=== PATIENT | female | born 1945 | race Caucasian/White ===

== ENCOUNTER 2020-05-01 12:52 | Emergency (ER) | payer BC, MEDICARE ==
[2020-05-01 13:24] VITALS: BP 151/73; PULSE 78
--- NOTE | 2020-05-01 13:49 | EDM.PDOC ---
ED HPI GENERAL MEDICAL PROBLEM - General Chief Complaint: Upper Extremity Injury/Pain Stated Complaint: BROKEN ARM Time Seen by Provider: 05/01/20 13:35 Source of Information: Reports: Patient, Family History Limitations: Reports: No Limitations - History of Present Illness INITIAL COMMENTS - FREE TEXT/NARRATIVE: 74-year-old female stumbled forward landing on her right arm. She has intense pain in the right humerus area, no other injury. She can move her elbow but it causes pain above the elbow to near the shoulder, she can feel her hand and move her fingers. Onset: Sudden Duration: Hour(s): (Within the past hour) Location: Reports: Upper Extremity, Right Associated Symptoms: Reports: No Other Symptoms. 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: - Infectious Disease History Infectious Disease History: Reports: Chicken Pox, Measles, Mumps Social & Family History - Tobacco Use Smoking Status *Q: Never Smoker - Caffeine Use Caffeine Use: Reports: Soda - Recreational Drug Use Recreational Drug Use: No Review of Systems - Review of Systems Review Of Systems: See Below Constitutional: Denies: Fever Respiratory: Denies: Shortness of Breath Cardiovascular: Denies: Chest Pain Skin: Denies: Bruising Neurological: Denies: Headache Psychiatric: Reports: No Symptoms ED EXAM, GENERAL - Physical Exam Exam: See Below Exam Limited By: No Limitations General Appearance: Alert, Mild Distress Head: Atraumatic Neck: Non-Tender Respiratory/Chest: Lungs Clear Extremities: Other (Erythema developing with some apparent mild deformity mid humeral area.) Neurological: Alert, Oriented Skin Exam: Warm, Dry Course - Vital Signs Last Recorded V/S: Last Vital Signs Temp 97.0 F 05/01/20 13:32 Pulse 78 05/01/20 13:32 Resp 16 05/01/20 13:32 BP 151/73 H 05/01/20 13:32 Pulse Ox 98 05/01/20 13:32 - Orders/Labs/Meds Meds: Medications Discontinued Medications Generic Name Dose Route Start Last Admin Trade Name Luis Enrique PRN Reason Stop Dose Admin Hydromorphone HCl 1 mg 05/01/20 13:56 05/01/20 14:05 Dilaudid IM 05/01/20 13:57 1 mg ONETIME ONE Administration - Re-Assessments/Exams Free Text/Narrative Re-Assessment/Exam: 05/01/20 14:02 X-ray of the right humerus was obtained and shows a displaced distal humeral shaft fracture. X-ray to be reviewed by Dr. Velasquez. 05/01/20 15:20 A 5 inch Ortho-Glass stirrup splint was placed on the upper arm with the elbow at a 90 degree angle, and the arm placed in a sling. She was given 20 hydrocodone for extra pain control and will recheck with Dr. Velasquez on . Departure - Departure Time of Disposition: 15:51 Disposition: Home, Self-Care 01 Clinical Impression: Right humeral fracture Qualifiers: Encounter type: initial encounter Humerus Location: shaft Fracture type: closed Fracture morphology: spiral Fracture alignment: displaced Qualified Code(s): S42.341A - Displaced spiral fracture of shaft of humerus, right arm, initial encounter for closed fracture - Discharge Information Instructions: Humerus Fracture Treated With Immobilization, [id number] Referrals: PCP,None [Primary Care Provider] - Forms: ED Department Discharge Care Plan Goals: Keep splint on and sling until recheck on . A regular dose of ibuprofen or naproxen will be helpful and add stronger pain medication if needed. Sepsis Event Note (ED) - Evaluation Sepsis Screening Result: No Definite Risk - Focused Exam Vital Signs: Vital Signs Temp Pulse Resp BP Pulse Ox 05/01/20 13:32 97.0 F 78 16 151/73 H 98 05/01/20 13:22 97.0 F 78 16 151/73 H 98
[2020-05-01] MEDS ORDERED: HYDROmorphone 1 MG/ML Syringe IM ONE (13:56)
--- NOTE | 2020-05-01 15:18 | CR ---
Humerus Rt CLINICAL HISTORY: Fall, pain FINDINGS: There is a displaced angulated fracture of the distal third of the humeral shaft.. IMPRESSION: Displaced distal humeral fracture
== END 2020-05-01 15:35 | disposition home or self-care (01) ==
LOC: JP.ED 12:52
DX: S42.341A Displaced spiral fracture of shaft of humerus, right arm, initial encounter for closed fracture (principal); J45.909 Unspecified asthma, uncomplicated; Z88.8 Allergy status to other drugs, medicaments and biological substances; Z88.0 Allergy status to penicillin; W01.0XXA Fall on same level from slipping, tripping and stumbling without subsequent striking against object, initial encounter
CPT/HCPCS: 29105; 73060; 96372; 99283; J1170

== ENCOUNTER 2020-08-29 07:28 | Day surgery (SDC) | payer MEDICARE ==
[~2020-08-29 07:28] MED LIST: Dexamethasone 4 MG/ML SDV ONE; Glycopyrrolate 0.2 MG/ML 5 ML MDV ONE; Neostigmine Methylsulfate 1 MG/ML 5 ML Syringe ONE; Ondansetron 4 MG/2 ML SDV ONE; Propofol 200 MG/20 ML SDV ONE; Rocuronium 50 MG/5 ML Vial ONE; Succinylcholine 200 MG/10 ML MDV ONE; fentaNYL 250 MCG/5 ML SDV ONE
[2020-08-29] MEDS ORDERED: Lactated Ringers 1,000 ML IV SCH (08:45)
[2020-08-29] MEDS ORDERED: Albuterol/Ipratropium 3.0-0.5 MG/3 ML Neb Soln NEB ONE (08:45)
[2020-08-29] MEDS ORDERED: Nozin Nasal Sanitizer NASBOTH ONE (08:45)
[2020-08-29] MEDS ORDERED: ceFAZolin 2 GM in Premix Bag 1 BAG IV ONE (09:00)
[2020-08-29] MEDS ORDERED: Lidocaine 4% Top Soln LTA 4 ML Syringe Kit ONE (09:19)
[2020-08-29] MEDS ORDERED: ePHEDrine 50 MG/ML SDV ONE (10:04)
[2020-08-29] MEDS ORDERED: Lactated Ringers 1,000 ML ONE (11:42)
[2020-08-29] MEDS ORDERED: Morphine 2 MG/ML SYRINGE IVPUSH ONE (12:04)
[2020-08-29] MEDS ORDERED: Acetaminophen/HYDROcodone 325-5 MG Tab PO ONE (12:52)
[2020-08-29 13:33] VITALS: BP 110/60; PULSE 83
--- NOTE | 2020-08-29 21:05 | CRLCR ---
Indication: Postop ORIF. Technique: Right humerus, 2 portable views. Comparison: Right humerus 08/14/2020. Findings: Lateral plate and screw fixation of obliquely oriented distal humeral diaphysis fracture shows no evidence of complication. Mild ventral apex angulation of fracture fragments and posterior lateral displacement of the distal fracture fragment persists but has markedly improved. [id number] degenerative changes of the elbow. No additional osseous abnormality. Lateral soft tissue swelling and gas consistent with recent surgery. Impression: ORIF of distal humerus fracture, without evidence of complication. Dictated by Adams Walker MD @ 08/29/2020 9:04:19 PM Dictated by: Adams Walker MD @ 08/29/2020 21:04:24 (Electronically Signed)
--- NOTE | 2020-09-03 20:36 | OR ---
DATE OF PROCEDURE: 08/29/2020 SURGEON: Jeffery Velasquez MD PREOPERATIVE DIAGNOSIS: Nonunion, right distal humerus. POSTOPERATIVE DIAGNOSIS: Nonunion, right distal humerus. PROCEDURES: 1. Takedown of nonunion. 2. Open reduction and internal fixation right humeral shaft. PROPRIETARY TRADER: MONA Meneses. INDICATIONS: Geetha is a 75-year-old female who sustained a fracture of her right distal humerus over 3 months ago. She is treated with splinting and bracing in an attempt to heal this nonsurgically. Most recent evaluation showed no evidence of any bridging callus and persistent motion at the fracture site. She is therefore taken to the operating room for fixation. Risks, benefits, and potential complications of the procedure were discussed. DESCRIPTION OF PROCEDURE: After adequate anesthesia was obtained, the patient was placed in a lateral decubitus position and secured with the beanbag positioner. Right arm was prepped and draped up to the shoulder. A long posterior incision was made from the tip of the olecranon proximally and carried down through the subcutaneous tissues. The triceps fascia was split longitudinally, and dissection carried down to the distal humeral fragment. This was exposed up to its proximal tip. This showed no evidence of any bridging callus whatsoever, and consistent with a fibrous nonunion. Dissection continued proximally identifying the humeral shaft proximally. Dissection then continued up isolating out the radial nerve and protecting it throughout the remainder of the case. Edges of the fracture were then debrided of intervening scar tissue, using a combination of Bovie electrocautery, periosteal elevator, and a rongeur. Bone edges were thoroughly cleaned. Some remodeling had taken place, but no major deformity was present. Once all fibrous tissue was removed and adequate apposition of the fracture fragments could be obtained, all bone edges were freshened with a combination of rongeur and periosteal elevator and a curette. Bone-holding clamp was then secured and a large compression plate was selected. This was placed as far distal as possible just at the superior edge of the olecranon fossa. Initial fixation was obtained with cortical screws in compression mode, distal and proximal to the main fractures. Additional screws were then placed with excellent purchase. One screw across the oblique fracture was placed in compression mode over drilling the near cortex. Wound was then thoroughly irrigated. Radial nerve was visualized and palpated throughout its course over the plate and was found to be free of any impingement. Fascia of the triceps was then closed with 0 Vicryl in a running locking fashion. Skin was closed with 2-0 Vicryl and a running 3-0 Monocryl. Steri-Strips were applied. Sterile dressing was then placed with a long posterior splint. The patient tolerated the procedure very well. There were no complications. She was taken from the operating room in stable condition. Jeffery Velasquez MD /[id number]
== END 2020-08-29 13:57 | disposition home or self-care (01) ==
LOC: JP.SDS 07:28
PROVIDERS: ATTEND Specialist
DX: S42.401K Unspecified fracture of lower end of right humerus, subsequent encounter for fracture with nonunion (principal); I10 Essential (primary) hypertension; E66.9 Obesity, unspecified; J45.909 Unspecified asthma, uncomplicated; Z79.899 Other long term (current) drug therapy; Z88.0 Allergy status to penicillin; Z88.8 Allergy status to other drugs, medicaments and biological substances; Z68.35 Body mass index [BMI] 35.0-35.9, adult
CPT/HCPCS: 73060-RT; 94640; A9270-GY; C1713; C1776; J0330; J0690; J1100; J2270; J2405; J2704; J2710; J3010; J3490; J7120; J7620-GY